=== PATIENT | male | born 2000 | race Caucasian/White ===

== ENCOUNTER 2020-09-05 12:47 | Day surgery (SDC) | payer OTHER ==
[2020-09-04 09:52] VITALS: BMI 29.8
[~2020-09-05 12:47] MED LIST: SODIUM CHLORIDE 0.9% 1,000 ML IV SCH
[2020-09-05 14:28] VITALS: BP 130/82; PULSE 79; RESP 14; TEMP 97
--- NOTE | 2020-09-09 19:41 | P.EPPROC ---
- EP Procedure Note Electrophysiology Procedure Note: Diagnosis Recurrent presyncope Twelve-lead EKG Sinus mechanism normal UT narrow QRS normal ST segments normal QT interval no delta waves no epsilon waves Sinus arrhythmia Tilt table test per protocol Baseline blood pressure 127/70 mmHg, Baseline heart rate 65 beats a minute Patient was tilted upright at an angle of 70 per protocol he complained of dizziness upon assuming upright posture. Later he stated he was lightheaded through the procedure His blood pressure remained stable also. There is a mild increase his heart rate to 100 beats a minute within the first 10 minutes. He is laid supine at the end of the procedure Impression Normal to lead EKG Very Mild orthostatic intolerance but no clear-cut evidence for postural tachycardia syndrome No evidence for neurocardiogenic syncope
== END 2020-09-05 16:20 | disposition home or self-care (01) ==
LOC: CATHEP 12:47
PROVIDERS: ATTEND Internal Medicine Clinical Cardiac Electrophysiology
DX: R42 Dizziness and giddiness (principal)
CPT/HCPCS: 87635; 93660

== ENCOUNTER 2023-12-16 07:55 | Day surgery (SDC) | payer BC ==
[2023-12-16] MEDS: IV FLUID CONTINUATION 1,000 ML IV ONE (08:14)
[2023-12-16 08:20] VITALS: TEMP 97.2
[2023-12-16] MEDS: LACTATED RINGERS 1,000 ML IV SCH (08:33)
[2023-12-16] MEDS ORDERED: PROPOFOL 10 MG/ML 20 ML VIAL IV ONE (09:11)
[2023-12-16] MEDS ORDERED: LIDOCAINE 1% INJ 10MG/ML (20 ML MDV) ONE (09:11)
--- NOTE | 2023-12-16 09:15 | P.GSHP ---
History of Present Illness H&P Date: 12/16/23 CHIEF COMPLAINT: GERD HISTORY OF PRESENT ILLNESS: The patient is a 23-year-old male who presents reports gastroesophageal reflux disease. Upper endoscopy was offered for further evaluation and management. PAST MEDICAL HISTORY: Please see list. PAST SURGICAL HISTORY: Please see list. MEDICATIONS: Please see list. ALLERGIES: Please see list. SOCIAL HISTORY: No illicit drug use FAMILY HISTORY: No reports of Crohn disease or ulcerative colitis. REVIEW OF ORGAN SYSTEMS: CONSTITUTIONAL: No reports of fevers or chills. GI: Denies any blood in stools or constipation. PHYSICAL EXAM: VITAL SIGNS: Stable GENERAL: Well-developed and pleasant in no acute distress. HEENT: No scleral icterus. Extraocular movements grossly intact. Moist buccal mucosa. NECK: Supple without lymphadenopathy. CHEST: Unlabored respirations. Equal bilateral excursions. CARDIOVASCULAR: Regular rate and rhythm. Distal 2+ pulses. ABDOMEN: Soft, nondistended. MUSCULOSKELETAL: No clubbing, cyanosis, or edema. ASSESSMENT: 1. Gastroesophageal reflux disease PLAN: 1. Recommend proceeding with an upper endoscopy Past Medical History Past Medical History: GERD/Reflux Additional Past Medical History / Comment(s): heartburn increasing in intensity. vomiting in the morning at times. abdominal pain. seasonal allergies History of Any Multi-Drug Resistant Organisms: None Reported Past Surgical History: Orthopedic Surgery Additional Past Surgical History / Comment(s): ACL repair rt knee, 6 surgeries on left ankle. Past Anesthesia/Blood Transfusion Reactions: No Reported Reaction Smoking Status: Never smoker - Past Family History Mother Family Medical History: No Reported History Father Family Medical History: Diabetes Mellitus, Thyroid Disorder Additional Family Medical History / Comment(s): graves disease. Medications and Allergies Home Medications Medication Instructions Recorded Confirmed Type Loratadine [Claritin] 10 mg PO DAILY PRN 09/04/20 12/13/23 History Allergies Allergy/AdvReac Type Severity Reaction Status Date / Time No Known Allergies Allergy Verified 12/16/23 08:20 Surgical - Exam Vital Signs Temp Pulse Resp BP Pulse Ox 97.2 F L 88 16 136/88 95 12/16/23 08:18 12/16/23 08:18 12/16/23 08:18 12/16/23 08:18 12/16/23 08:18
--- NOTE | 2023-12-16 09:25 | P.PCN ---
Date of Procedure: 12/16/23 Description of Procedure: PREOPERATIVE DIAGNOSIS: Gastroesophageal reflux disease. Hiatal hernia POSTOPERATIVE DIAGNOSIS: Gastroesophageal reflux disease. Gastritis. OPERATION: Esophagogastroduodenoscopy with biopsies along esophagus, antrum and duodenum SURGEON: Lindsay Saucedo MD ANESTHESIA: MAC. INDICATIONS: The patient is a 23-year-old male who presents with reflux disease. Benefits and risks of the procedure were described. Informed consent was obtained. DESCRIPTION: The patient was brought into the endoscopy suite and laid in the left lateral decubitus position. An Olympus gastroscope was passed along the posterior oropharynx down to the distal esophagus where the squamocolumnar junction was encountered at 40 cm from the incisors. The stomach was entered and no bile reflux was found. Additional findings are listed below. Biopsies with cold forceps were obtained of the antrum. The first through third portion of the duodenum was examined. Retroflexion of the scope confirmed Hill grade 1 lower esophageal valve. The squamocolumnar junction demonstrated LA grade B erosive esophagitis. The stomach was desufflated. The patient tolerated the procedure well. FINDINGS: Squamocolumnar junction 40 cm from the incisors. Diaphragmatic hiatus at 40 cm. Hill grade 1 lower esophageal valve. LA grade A erosive esophagitis. Biopsies obtained Biopsies obtained of the duodenum. Chronic gastritis with biopsies obtained. RECOMMENDATIONS: Upper endoscopy as needed. Plan - Discharge Summary Discharge Rx Participant: No New Discharge Prescriptions: Continue Loratadine [Claritin] 10 mg PO DAILY PRN PRN Reason: Allergy Symptoms Discharge Medication List Loratadine [Claritin] 10 mg PO DAILY PRN 09/04/20 [History] Follow up Appointment(s)/Referral(s): Lindsay Saucedo MD [STAFF PHYSICIAN] - 01/11/24 4:00 pm Patient Instructions/Handouts: Gastritis (DC)
[2023-12-16 09:58] VITALS: BP 126/85; PULSE 82; RESP 20
== END 2023-12-16 10:26 | disposition home or self-care (01) ==
LOC: ORWHC2ENDO 07:55
PROVIDERS: ATTEND Surgery Plastic and Reconstructive Surgery
DX: K21.00 Gastro-esophageal reflux disease with esophagitis, without bleeding (principal); K44.9 Diaphragmatic hernia without obstruction or gangrene; Z83.3 Family history of diabetes mellitus; Z83.49 Family history of other endocrine, nutritional and metabolic diseases; Z79.899 Other long term (current) drug therapy
CPT/HCPCS: 88305; 43239; J2001; J2704

== ENCOUNTER → 2024-04-14 | Outpatient (CLI) | payer BC ==
--- NOTE | 2024-04-14 09:18 | US ---
EXAMINATION TYPE: US gallbladder DATE OF EXAM: 04/14/2024 COMPARISON: NONE CLINICAL INDICATION: Male, 23 years old with history of R10.11 RIGHT UPPER QUADRANT PAIN; Vomiting TECHNIQUE: Grayscale and color Doppler imaging of the right upper quadrant was performed. FINDINGS: EXAM MEASUREMENTS: Liver Length: 14.2 cm Gallbladder Wall: .2 cm CBD: .2 cm Right Kidney: 9.3 x 4.4 x 4.2 cm [employer] NOTES: Pancreas: Obscured by bowel gas Liver: wnl Gallbladder: No stones seen Evidence for sonographic Way's sign: No CBD: wnl Right Kidney: No hydronephrosis or masses seen IMPRESSION: Unremarkable study [facility] Marquita Dowling, , 04/14/2024 9:15 AM
== END | disposition home or self-care (01) ==
LOC: RADUSWWP 08:25
PROVIDERS: ATTEND Surgery Plastic and Reconstructive Surgery
DX: R10.11 Right upper quadrant pain (principal); R11.10 Vomiting, unspecified
CPT/HCPCS: 76705